=== PATIENT | female | born 1995 | race African-American/Black ===

== ENCOUNTER 2018-01-23 09:21 | Emergency (ER) | payer SELFPAY ==
[~2018-01-23] VITALS: Ht 157.5 cm; Wt 68.0 kg
[~2018-01-23 09:21] MED LIST: OMEP20TA8 PO
[2018-01-23] MEDS: IV NORMAL SALINE 1000ML BAG 1,000 ML IV ONE (10:27)
[2018-01-23 10:54] LABS: BASO % 1 % (0-3); EOS # 0.2 x10^3/uL (0.0-0.7); EOS % 3 % (0-3); HEMATOCRIT 37.1 % (36.0-47.0); HEMOGLOBIN 12.7 g/dL (12.0-15.5); LYMPH # 1.7 x10^3/uL (1.0-4.8); LYMPH % 31 % (24-48); MEAN CORPUSCULAR HEMOGLOBIN 31 pg (25-35); MEAN CORPUSCULAR HGB CONC 34 g/dL (31-37); MEAN CORPUSCULAR VOLUME 91 fL (79-100); MONO # 0.4 x10^3/uL (0.0-1.1); MONO % 7 % (0-9); NEUT # 3.1 x10^3uL (1.8-7.7); NEUT % 58 % (31-73); PLATELET COUNT 230 x10^3/uL (140-400); RED BLOOD COUNT 4.06 x10^6/uL (3.50-5.40); RED CELL DISTRIBUTION WIDTH 13.2 % (11.5-14.5); WHITE BLOOD COUNT 5.4 x10^3/uL (4.0-11.0)
[2018-01-23 11:01] LABS: BILIRUBIN,URINE NEGATIVE (NEG); CLARITY,URINE CLEAR; COLOR,URINE YELLOW; NITRITE,URINE NEGATIVE (NEG); PROTEIN,URINE NEGATIVE (NEG-TRACE); UROBILINOGEN,URINE 0.2 mg/dL (0.2 mg/dL)
[2018-01-23 11:08] LABS: CALCIUM 9.4 mg/dL (8.5-10.1); CREATININE 1.1 mg/dL (0.6-1.0); GFR 75.2; POTASSIUM 4.1 mmol/L (3.5-5.1)
[2018-01-23 11:09] LABS: BARBITURATES NEG (NEG); BENZODIAZEPINES NEG (NEG); CANNABINOIDS NEG (NEG); COCAINE NEG (NEG); METHADONE NEG (NEG); OPIATES NEG (NEG); PHENCYCLIDINE NEG (NEG)
[2018-01-23 11:12] LABS: AMPHETAMINE/METHAMPHETAMINE NEG (NEG)
[2018-01-23 11:18] LABS: SQUAMOUS EPITHELIAL CELL,UR FEW /LPF
[2018-01-23 11:21] LABS: ALBUMIN 3.7 g/dL (3.4-5.0); ALBUMIN/GLOBULIN RATIO 0.9 (1.0-1.7); TOTAL BILIRUBIN 0.2 mg/dL (0.2-1.0); TOTAL PROTEIN 7.8 g/dL (6.4-8.2)
[2018-01-23 11:26] LABS: BACTERIA,URINE FEW /HPF (0-FEW)
[2018-01-23 11:30] VITALS: BP 114/54
--- NOTE | 2018-01-23 11:39 | PHYS DOC ---
Past Medical History Past Medical History: Asthma, Seizure, Other Additional Past Medical Histor: eczema Past Surgical History: No Surgical History Alcohol Use: None Drug Use: None Adult General Chief Complaint Chief Complaint: SEIZURE HPI HPI 22-year-old female who has a history of anxiety and questionable seizure disorder presents after another seizure today. EMS was called secondary to witnessed seizure activity. Patient did not hit her head. She denies any pain or trauma to her tongue. She states that she has been offered seizure medicine in the past but refuses to take it. Her mother was present at the questioning states that she refuses to see a specialist. Also, there was no bowel or bladder incontinence[] Review of Systems Review of Systems Constitutional: Denies fever or chills [] Eyes: Denies change in visual acuity, redness, or eye pain [] HENT: Denies nasal congestion or sore throat [] Respiratory: Denies cough or shortness of breath [] Cardiovascular: No additional information not addressed in HPI [] GI: Denies abdominal pain, nausea, vomiting, bloody stools or diarrhea [] : Denies dysuria or hematuria [] Musculoskeletal: Denies back pain or joint pain [] Integument: Denies rash or skin lesions [] Neurologic: Per history of present illness[] Endocrine: Denies polyuria or polydipsia [] All other systems were reviewed and found to be within normal limits, except as documented in this note. Current Medications Current Medications Current Medications Medications (Trade) Dose Ordered Sig/Jose Start Time Stop Time Status Last Admin Dose Admin Sodium Chloride 1,000 ml @ 1,000 mls/hr 1X ONCE 01/23/18 09:45 01/23/18 10:44 DC 01/23/18 10:27 1,000 MLS/HR Allergies Allergies Allergies Coded Allergies Type Severity Reaction Last Updated Verified No Known Drug Allergies 07/02/13 No Physical Exam Physical Exam Constitutional: Well developed, well nourished, no acute distress, non-toxic appearance, somewhat somnolent. [] HENT: Normocephalic, atraumatic, bilateral external ears normal, oropharynx moist, no oral exudates, nose normal. [] Eyes: PERRLA, EOMI, conjunctiva normal, no discharge. [] Neck: Normal range of motion, no tenderness, supple, no stridor. [] Cardiovascular:Heart rate regular rhythm, no murmur [] Lungs & Thorax: Bilateral breath sounds clear to auscultation [] Abdomen: Bowel sounds normal, soft, no tenderness, no masses, no pulsatile masses. [] Skin: Warm, dry, no erythema, no rash. [] Back: No tenderness, no CVA tenderness. [] Extremities: No tenderness, no cyanosis, no clubbing, ROM intact, no edema. [] Neurologic: Alert and oriented X 3, normal motor function, normal sensory function, no focal deficits noted. [] Psychologic: Depressed affect but no suicidal or homicidal ideation. [] Current Patient Data Vital Signs Vital Signs Date Time Temp Pulse Resp B/P (MAP) Pulse Ox O2 Delivery O2 Flow Rate FiO2 01/23/18 10:43 92 16 100 01/23/18 09:22 98.6 128/77 (94) Room Air 98.6 Lab Values Laboratory Tests Test 01/23/18 09:55 01/23/18 10:30 01/23/18 10:41 White Blood Count 5.4 x10^3/uL (4.0-11.0) Red Blood Count 4.06 x10^6/uL (3.50-5.40) Hemoglobin 12.7 g/dL (12.0-15.5) Hematocrit 37.1 % (36.0-47.0) Mean Corpuscular Volume 91 fL (79-100) Mean Corpuscular Hemoglobin 31 pg (25-35) Mean Corpuscular Hemoglobin Concent 34 g/dL (31-37) Red Cell Distribution Width 13.2 % (11.5-14.5) Platelet Count 230 x10^3/uL (140-400) Neutrophils (%) (Auto) 58 % (31-73) Lymphocytes (%) (Auto) 31 % (24-48) Monocytes (%) (Auto) 7 % (0-9) Eosinophils (%) (Auto) 3 % (0-3) Basophils (%) (Auto) 1 % (0-3) Neutrophils # (Auto) 3.1 x10^3uL (1.8-7.7) Lymphocytes # (Auto) 1.7 x10^3/uL (1.0-4.8) Monocytes # (Auto) 0.4 x10^3/uL (0.0-1.1) Eosinophils # (Auto) 0.2 x10^3/uL (0.0-0.7) Basophils # (Auto) 0.0 x10^3/uL (0.0-0.2) Sodium Level 141 mmol/L (136-145) Potassium Level 4.1 mmol/L (3.5-5.1) Chloride Level 105 mmol/L (98-107) Carbon Dioxide Level 26 mmol/L (21-32) Anion Gap 10 (6-14) Blood Urea Nitrogen 16 mg/dL (7-20) Creatinine 1.1 mg/dL (0.6-1.0) H Estimated GFR (Cockcroft-Gault) 75.2 BUN/Creatinine Ratio 15 (6-20) Glucose Level 92 mg/dL (70-99) Calcium Level 9.4 mg/dL (8.5-10.1) Total Bilirubin 0.2 mg/dL (0.2-1.0) Aspartate Amino Transferase (AST) 13 U/L (15-37) L Alanine Aminotransferase (ALT) 19 U/L (14-59) Alkaline Phosphatase 51 U/L (46-116) Total Protein 7.8 g/dL (6.4-8.2) Albumin 3.7 g/dL (3.4-5.0) Albumin/Globulin Ratio 0.9 (1.0-1.7) L Ethyl Alcohol Level < 10 mg/dL (0-10) Urine Collection Type Void Urine Color Yellow Urine Clarity Clear Urine pH 6.0 Urine Specific [place] 1.025 Urine Protein Negative mg/dL (NEG-TRACE) Urine Glucose (UA) Negative mg/dL (NEG) Urine Ketones (Stick) Negative mg/dL (NEG) Urine Blood Trace (NEG) Urine Nitrite Negative (NEG) Urine Bilirubin Negative (NEG) Urine Urobilinogen Dipstick 0.2 mg/dL (0.2 mg/dL) Urine Leukocyte Esterase Negative (NEG) Urine RBC 3-5 /HPF (0-2) Urine WBC 1-4 /HPF (0-4) Urine Squamous Epithelial Cells Few /LPF Urine Bacteria Few /HPF (0-FEW) Urine Mucus Slight /LPF Urine Opiates Screen Neg (NEG) Urine Methadone Screen Neg (NEG) Urine Barbiturates Neg (NEG) Urine Phencyclidine Screen Neg (NEG) Urine Amphetamine/Methamphetamine Neg (NEG) Urine Benzodiazepines Screen Neg (NEG) Urine Cocaine Screen Neg (NEG) Urine Cannabinoids Screen Neg (NEG) Urine Ethyl Alcohol Neg (NEG) POC Urine HCG, Qualitative Hcg negative (Negative) Laboratory Tests 01/23/18 09:55 Laboratory Tests 01/23/18 09:55 EKG EKG [] Radiology/Procedures Radiology/Procedures [] Course & Med Decision Making Course & Med Decision Making Pertinent Labs and Imaging studies reviewed. (See chart for details) [ED course: Evaluation reveals 22-year-old female who may have had a seizure today. On arrival she was groggy but would answer questions. After observation for a couple of hours she was much more awake and interactive. She had no further seizure activity in the department. I will go ahead and refer her to Dr. Vásquez I have stressed the importance to both her and her mother and she seems to understand.] Dragon Disclaimer Dragon Disclaimer This electronic medical record was generated, in whole or in part, using a voice recognition dictation system. Departure Departure Impression: Primary Impression: Seizure Disposition: 01 HOME, SELF-CARE Condition: STABLE Referrals: NO PCP (PCP) TALIB NEVES MD You'll need to see Dr. Vásquez before you're permitted to drive Patient Instructions: Seizure, Adult Additional Instructions: It is extremely important that he follow with Dr. Vásquez for further evaluation of her seizures. Again, you're not allowed to drive until you're cleared by a neurologist GEMA MOREIRA DO Jan 23, 2018 11:39
== END 2018-01-23 11:49 | disposition home or self-care (01) ==
LOC: ER 09:21
DX: G40.909 Epilepsy, unspecified, not intractable, without status epilepticus (principal); J45.909 Unspecified asthma, uncomplicated; F41.9 Anxiety disorder, unspecified; F31.9 Bipolar disorder, unspecified
CPT/HCPCS: 36415; 80053; 80307; 81001; 81025; 85025; 99284; G0480; J7030; G0479

== ENCOUNTER 2019-01-30 13:44 | Emergency (ER) | payer BC ==
[~2019-01-30] VITALS: Ht 160 cm; Wt 63.5 kg
--- NOTE | 2019-01-30 14:21 | PHYS DOC ---
Past Medical History Past Medical History: Asthma, Seizure, Other Additional Past Medical Histor: eczema Past Surgical History: No Surgical History Alcohol Use: None Drug Use: None Adult General Chief Complaint Chief Complaint: SEIZURE HPI HPI Patient is a 23 year old female with history of seizure who presents via EMS with complaining of seizure. Patient had a witnessed seizure as a grand mal seizure that last about 5 minutes without fall or head injury or falling urinary incontinence. Patient was in postictal condition and stated her last seizure episode was more than one year ago. Patient states she was seen at [facility] and they plan to start anticonvulsive medication that is not starting yet. Patient denies lack of sleep, , using drugs and alcohol. Patient complaining of upper and lower extremity pain after her seizure that was not usual after her seizure episode. Review of Systems Review of Systems Constitutional: Denies fever or chills [] Eyes: Denies change in visual acuity, redness, or eye pain [] HENT: Denies nasal congestion or sore throat [] Respiratory: Denies cough or shortness of breath [] Cardiovascular: No additional information not addressed in HPI [] GI: Denies abdominal pain, nausea, vomiting, bloody stools or diarrhea [] : Denies dysuria or hematuria [] Musculoskeletal: Denies back pain, reports extremity pain Integument: Denies rash or skin lesions [] Neurologic: Denies headache, focal weakness or sensory changes [] Endocrine: Denies polyuria or polydipsia [] All other systems were reviewed and found to be within normal limits, except as documented in this note. Current Medications Current Medications Current Medications Medications (Trade) Dose Ordered Sig/[place] Start Time Stop Time Status Last Admin Dose Admin Levetiracetam (Keppra) 500 mg 1X STAT 01/30/19 15:39 01/30/19 15:40 DC 01/30/19 15:53 500 MG Allergies Allergies Allergies Coded Allergies Type Severity Reaction Last Updated Verified No Known Drug Allergies 07/02/13 No Physical Exam Physical Exam Constitutional: Well developed, well nourished, mild distress, non-toxic appearance. [] HENT: Normocephalic, atraumatic. Eyes: PERRLA, EOMI, conjunctiva normal, no discharge. [] Neck: Normal range of motion, no tenderness, supple, no stridor. [] Cardiovascular:Heart rate regular rhythm, no murmur [] Lungs & Thorax: Bilateral breath sounds clear to auscultation [] Abdomen: Bowel sounds normal, soft, no tenderness, no masses, no pulsatile masses. [] Skin: Warm, dry, no erythema, no rash. [] Back: No tenderness, no CVA tenderness. [] Extremities: No tenderness, no cyanosis, no clubbing, ROM intact, no edema. [] Neurologic: Alert, post total condition, no focal deficits noted. [] Psychologic: Affect normal, mood normal. [] Current Patient Data Vital Signs Vital Signs Date Time Temp Pulse Resp B/P (MAP) Pulse Ox O2 Delivery O2 Flow Rate FiO2 01/30/19 13:45 99.0 83 16 120/67 (84) 100 Room Air 99.0 Lab Values Laboratory Tests Test 01/30/19 14:25 01/30/19 15:10 Sodium Level 141 mmol/L (136-145) Potassium Level 3.9 mmol/L (3.5-5.1) Chloride Level 106 mmol/L (98-107) Carbon Dioxide Level 27 mmol/L (21-32) Anion Gap 8 (6-14) Blood Urea Nitrogen 20 mg/dL (7-20) Creatinine 1.0 mg/dL (0.6-1.0) Estimated GFR (Cockcroft-Gault) 83.1 BUN/Creatinine Ratio 20 (6-20) Glucose Level 94 mg/dL (70-99) Calcium Level 9.2 mg/dL (8.5-10.1) Total Bilirubin 0.2 mg/dL (0.2-1.0) Aspartate Amino Transferase (AST) 13 U/L (15-37) L Alanine Aminotransferase (ALT) 11 U/L (14-59) L Alkaline Phosphatase 43 U/L (46-116) L Total Protein 7.5 g/dL (6.4-8.2) Albumin 3.6 g/dL (3.4-5.0) Albumin/Globulin Ratio 0.9 (1.0-1.7) L White Blood Count 4.3 x10^3/uL (4.0-11.0) Red Blood Count 3.55 x10^6/uL (3.50-5.40) Hemoglobin 11.2 g/dL (12.0-15.5) L Hematocrit 32.8 % (36.0-47.0) L Mean Corpuscular Volume 92 fL (79-100) Mean Corpuscular Hemoglobin 32 pg (25-35) Mean Corpuscular Hemoglobin Concent 34 g/dL (31-37) Red Cell Distribution Width 13.3 % (11.5-14.5) Platelet Count 225 x10^3/uL (140-400) Neutrophils (%) (Auto) 38 % (31-73) Lymphocytes (%) (Auto) 53 % (24-48) H Monocytes (%) (Auto) 7 % (0-9) Eosinophils (%) (Auto) 1 % (0-3) Basophils (%) (Auto) 1 % (0-3) Neutrophils # (Auto) 1.6 x10^3/uL (1.8-7.7) L Lymphocytes # (Auto) 2.3 x10^3/uL (1.0-4.8) Monocytes # (Auto) 0.3 x10^3/uL (0.0-1.1) Eosinophils # (Auto) 0.0 x10^3/uL (0.0-0.7) Basophils # (Auto) 0.0 x10^3/uL (0.0-0.2) Urine Opiates Screen Neg (NEG) Urine Methadone Screen Neg (NEG) Urine Barbiturates Neg (NEG) Urine Phencyclidine Screen Neg (NEG) Urine Amphetamine/Methamphetamine Neg (NEG) Urine Benzodiazepines Screen Neg (NEG) Urine Cocaine Screen Neg (NEG) Urine Cannabinoids Screen Neg (NEG) Urine Ethyl Alcohol Neg (NEG) Laboratory Tests 01/30/19 15:10 Laboratory Tests 01/30/19 14:25 EKG EKG [] Radiology/Procedures Radiology/Procedures [] Course & Med Decision Making Course & Med Decision Making Pertinent Labs reviewed. (See chart for details) Evaluation of patient in ER showed 23-year-old female patient with history of 3- 4 episodes of seizure previously brought in by EMS because of another episode of seizure. Last episode of seizure was more than one year ago. Patient currently followed with [facility] but does not take anticonvulsive medication. Patient had unremarkable labs and evaluation. On-call neurologist Dr. Vásquez was consulted at 1537 and agreed to start Keppra 500 mg twice a day and follow with her neurologist. I've spoken with the patient and/or caregivers. I've explained the patient's condition, diagnosis and treatment plan based on information available to me at this time. I've answered the patient's and/or caregivers questions and addressed any concerns. The patient and/or caregivers have a good understanding the patient's diagnosis, condition and treatment plan as can be expected at this point. Vital signs have been stabilized. The patient's condition is stable for discharge from the emergency department. The patient will pursue further outpatient evaluation with her primary care provider or other designated consulting physician as outlined in the discharge instructions. Patient and/or caregivers are agreeable to this plan of care and follow-up instructions have been explained in detail. The patient and/or caregivers have received these instructions in written format and expressed understanding of these discharge instructions. The patient and her caregivers are aware that if any significant change in condition or worsening of symptoms should prompt him to immediately return to this of the closest emergency department. If an emergent department is not readily available I would encourage him to call 911. Dragon Disclaimer Dragon Disclaimer This electronic medical record was generated, in whole or in part, using a voice recognition dictation system. Departure Departure Impression: Primary Impression: Recurrent seizures Additional Impression: Anemia Disposition: HOME, SELF-CARE (at 1604) Condition: IMPROVED Referrals: NO PCP (PCP) TALIB NEVES MD Patient Instructions: Seizure, Adult Additional Instructions: Drink plenty of liquids Follow-up with your seizure physician in one or 2 days Return to ER if not getting better Scripts Levetiracetam (KEPPRA) 500 Mg Tablet 1 TAB PO BID, #60 TAB 0 Refills Prov: MARY STEPHEN MD 01/30/19 Problem Qualifiers Additional Impression: Anemia Anemia type: unspecified type Qualified Codes: D64.9 - Anemia, unspecified MARY STEPHEN MD Jan 30, 2019 14:21
[2019-01-30 14:54] LABS: CALCIUM 9.2 mg/dL (8.5-10.1); GFR 83.1; POTASSIUM 3.9 mmol/L (3.5-5.1)
[2019-01-30 14:59] LABS: ALBUMIN 3.6 g/dL (3.4-5.0); ALBUMIN/GLOBULIN RATIO 0.9 (1.0-1.7); TOTAL BILIRUBIN 0.2 mg/dL (0.2-1.0); TOTAL PROTEIN 7.5 g/dL (6.4-8.2)
[2019-01-30 15:26] LABS: BASO % 1 % (0-3); EOS % 1 % (0-3); HEMATOCRIT 32.8 % (36.0-47.0); HEMOGLOBIN 11.2 g/dL (12.0-15.5); LYMPH # 2.3 x10^3/uL (1.0-4.8); LYMPH % 53 % (24-48); MEAN CORPUSCULAR HEMOGLOBIN 32 pg (25-35); MEAN CORPUSCULAR HGB CONC 34 g/dL (31-37); MEAN CORPUSCULAR VOLUME 92 fL (79-100); MONO # 0.3 x10^3/uL (0.0-1.1); MONO % 7 % (0-9); NEUT # 1.6 x10^3/uL (1.8-7.7); NEUT % 38 % (31-73); PLATELET COUNT 225 x10^3/uL (140-400); RED BLOOD COUNT 3.55 x10^6/uL (3.50-5.40); RED CELL DISTRIBUTION WIDTH 13.3 % (11.5-14.5); WHITE BLOOD COUNT 4.3 x10^3/uL (4.0-11.0)
[2019-01-30] MEDS ORDERED: levETIRAcetam 500 MG TABLET PO STA (15:39)
[2019-01-30 15:41] LABS: BARBITURATES NEG (NEG); BENZODIAZEPINES NEG (NEG); CANNABINOIDS NEG (NEG); COCAINE NEG (NEG); METHADONE NEG (NEG); OPIATES NEG (NEG); PHENCYCLIDINE NEG (NEG)
[2019-01-30 15:43] LABS: AMPHETAMINE/METHAMPHETAMINE NEG (NEG)
[2019-01-30 16:00] VITALS: BP 114/66
[2019-01-30] MEDS ORDERED: LEVE500T56 PO (16:07)
== END 2019-01-30 16:20 | disposition home or self-care (01) ==
LOC: ER 13:44
DX: G40.909 Epilepsy, unspecified, not intractable, without status epilepticus (principal); D64.9 Anemia, unspecified; J45.909 Unspecified asthma, uncomplicated
CPT/HCPCS: 36415; 80053; 80307; 81025; 85025; 99284

== ENCOUNTER 2020-03-03 17:16 | Emergency (ER) | payer BC ==
[~2020-03-03] VITALS: Ht 167.6 cm; Wt 70.0 kg
[~2020-03-03 17:16] MED LIST changes: +LEVE500T56 PO
[2020-03-03 17:30] VITALS: BP 116/53
--- NOTE | 2020-03-03 17:44 | PHYS DOC ---
Past Medical History Past Medical History: Asthma, Seizure, Other Additional Past Medical Histor: eczema Past Surgical History: No Surgical History Smoking Status: Never Smoker Alcohol Use: None Drug Use: None General Adult EDM: Chief Complaint: TOE PROBLEM HPI: HPI: Patient is a 24 year old female who presents with states she just gotten done clipping her toenails and she took a shower. She states that one of the toenails must not have come all the way off on her right fifth toe. She states when she went to put her pants on it snagged and it pulled her right fifth toe 1 [address] and her other toes went the other way. She states now she has pain on the lateral part of her dorsal foot and tenderness to that fifth toe. She is walking with a steady gait but is limping. She rates her pain a 9 out of 10. She did not take any medicine prior to coming. She has a history of asthma and seizures. She denies any numbness or tingling, coolness of the extremity, swelling, skin color changes. Review of Systems: Review of Systems: Constitutional: Denies fever or chills. [] Eyes: Denies change in visual acuity. [] HENT: Denies nasal congestion or sore throat. [] Respiratory: Denies cough or shortness of breath. [] Cardiovascular: Denies chest pain or edema. [] GI: Denies abdominal pain, nausea, vomiting, bloody stools or diarrhea. [] : Denies dysuria. [] Musculoskeletal: Denies back pain or joint pain. + Right foot pain [] Integument: Denies rash. [] Neurologic: Denies headache, focal weakness or sensory changes. [] Endocrine: Denies polyuria or polydipsia. [] Lymphatic: Denies swollen glands. [] Psychiatric: Denies depression or anxiety. [] Heart Score: Risk Factors: Risk Factors: DM, Current or recent (<one month) smoker, HTN, HLP, family history of CAD, obesity. Risk Scores: Score 0 - 3: 2.5% MACE over next 6 weeks - Discharge Home Score 4 - 6: 20.3% MACE over next 6 weeks - Admit for Clinical Observation Score 7 - 10: 72.7% MACE over next 6 weeks - Early Invasive Strategies Current Medications: Current Medications Medications (Trade) Dose Ordered Sig/Jose Start Time Stop Time Status Last Admin Dose Admin Ibuprofen (Motrin) 800 mg 1X ONCE 03/03/20 17:45 03/03/20 17:46 Allergies: Allergies: Allergies Coded Allergies Type Severity Reaction Last Updated Verified No Known Drug Allergies 07/02/13 No Physical Exam: PE: Constitutional: Well developed, well nourished, no acute distress, non-toxic appearance. [] HENT: Normocephalic, atraumatic, bilateral external ears normal, oropharynx moist, no oral exudates, nose normal. [] Eyes: PERRLA, EOMI, conjunctiva normal, no discharge. [] Neck: Normal range of motion, no tenderness, supple, no stridor. [] Cardiovascular:Heart rate regular rhythm, no murmur [] Lungs & Thorax: Bilateral breath sounds clear to auscultation [] Abdomen: Bowel sounds normal, soft, no tenderness, no masses, no pulsatile masses. [] Skin: Warm, dry, no erythema, no rash. [] Back: No tenderness, no CVA tenderness. [] Extremities: Right fifth toe and right lateral dorsal foot tenderness, no cyanosis, no clubbing, ROM intact but painful, no edema. [] Neurologic: Alert and oriented X 3, normal motor function, normal sensory function, no focal deficits noted. [] Psychologic: Affect normal, judgement normal, mood normal. [] EKG: EKG: [] Radiology/Procedures: Radiology/Procedures: [] Impression: [facility] [address] [facility] [place] [address] IMAGING REPORT Signed PATIENT: KATT VELASQUEZ NACCOUNT: [id number] : 1995 LOCATION: ER AGE: 24 SEX: F EXAM STATUS: REG ER ORD. PHYSICIAN: LUNA RECIO APRN REASON: PAIN, INJURY PROCEDURE: FOOT RIGHT 3V Three-view right foot radiographs 03/03/2020 CLINICAL HISTORY: Right foot pain. Injury. AP, oblique and lateral digital radiographs of right foot were obtained. No fracture or dislocation of the right foot is seen. No radiopaque foreign body is noted. IMPRESSION: No fracture or dislocation of the right foot is seen. Electronically signed by: Lucius Aguila MD (03/03/2020 5:56 PM) [id number] DICTATED and SIGNED BY: LUCIUS AGUILA MD DATE: 03/03/20 175 Course & Med Decision Making: Course & Med Decision Making Pertinent Labs and Imaging studies reviewed. (See chart for details) See HPI. She has full range of motion of all of her foot and toe joints but is painful on the fifth toe. She states is painful to walk. Pedal pulses are strong present. There is no swelling or deformity. There is no bruising seen. Cap refill is less than 2 seconds. No nailbed damage. Tenderness to the fifth toe and over the dorsal foot on the lateral side. X-ray shows no acute findings. Patient is placed in a postoperative shoe. She can follow-up with orthopedic if needed. [] Dragon Disclaimer: Dragdarron Disclaimer: This electronic medical record was generated, in whole or in part, using a voice recognition dictation system. Departure Departure Impression: Primary Impression: Foot pain, right Disposition: 01 DC HOME SELF CARE/HOMELESS Condition: STABLE Referrals: NO PCP (PCP) ALMA FINNEGAN MD Patient Instructions: Foot Sprain-Brief Additional Instructions: Follow-up with primary care physician or orthopedic if needed. Use ice if needed. Rest the foot. Use ibuprofen for pain. Scripts Ibuprofen (IBUPROFEN) 600 Mg Tablet 600 MG PO PRN Q6HRS PRN for INFLAMMATION, #20 TAB Prov: LUNA RECIO APRN 03/03/20 LUNA RECIO APRN Mar 03, 2020 17:44
[2020-03-03] MEDS ORDERED: IBUPROFEN 400 MG TABLET. PO ONE (17:45)
--- NOTE | 2020-03-03 17:59 | RAD ---
Three-view right foot radiographs 03/03/2020 CLINICAL HISTORY: Right foot pain. Injury. AP, oblique and lateral digital radiographs of right foot were obtained. No fracture or dislocation of the right foot is seen. No radiopaque foreign body is noted. IMPRESSION: No fracture or dislocation of the right foot is seen. Electronically signed by: Lucius Aguila MD (03/03/2020 5:56 PM) [id number]
[2020-03-03] MEDS ORDERED: IBUP-1007 PO (18:10)
== END 2020-03-03 18:40 | disposition home or self-care (01) ==
LOC: ER 17:16
DX: M79.671 Pain in right foot (principal); M79.674 Pain in right toe(s); J45.909 Unspecified asthma, uncomplicated
CPT/HCPCS: 73630; 99283